=== PATIENT | female | born 1995 | race African-American/Black ===

== ENCOUNTER 2021-07-25 10:02 | Emergency (ER) | payer SELFPAY ==
[~2021-07-25] VITALS: Ht 170.2 cm; Wt 74.8 kg
[2021-07-25] MEDS ORDERED: BELLADONNA ALK/PHENOBARBITAL 5 ML UDC PO ONE (10:45)
[2021-07-25] MEDS ORDERED: MAGNESIUM/ALUMINUM/SIMETHICONE 30 ML UDC PO ONE (10:45)
[2021-07-25] MEDS ORDERED: LIDOCAINE VISC 2% SOLN 15 ML UDC PO ONE (10:45)
== END 2021-07-25 12:00 | disposition home or self-care (01) ==
LOC: ER 10:08
DX: R09.89 Other specified symptoms and signs involving the circulatory and respiratory systems (principal); K20.90 Esophagitis, unspecified without bleeding
CPT/HCPCS: 99282